=== PATIENT | female | born 1950 | race Caucasian/White ===

== ENCOUNTER → 2016-04-14 | Outpatient (CLI) | payer OTHER ==
[~2016-04-14] MED LIST: ASPIR 8181 MG PO; ATORVASTATIN CA40 MG PO; ELIQUIS 5 MG TAB5 MG PO; EVISTA60 MG PO; FERREX 150 FOR1 EACH PO; FLAGYL500 MG PO; K-DUR TAB 20 M20 MEQ PO; MELOXICAM7.5 MG PO; MIRAPEX0.5 MG PO; OMNICEF 300 MG300 MG PO; PROAIR HFA8.5 GM INH; SOTALOL80 MG PO; SYMBICORT 16010.2 GM INH; TRIAMTERENE-HC1 EACH PO; VITAMIN D50000 UNIT PO; VOLTAREN100 GM TOP; ZOLOFT50 MG PO
== END ==
LOC: KOH-I 08:36
DX: R10.9 Unspecified abdominal pain (principal); R11.2 Nausea with vomiting, unspecified
CPT/HCPCS: 76705